=== PATIENT | male | born 1990 | race African-American/Black ===

== ENCOUNTER 2019-08-29 00:42 | Emergency (ER) | payer OTHER ==
[~2019-08-29] VITALS: Ht 177.8 cm; Wt 95.3 kg
[2019-08-29 01:20] VITALS: BP 117/81
[2019-08-29 01:33] LABS: Basophils # (auto) 0 uL; Basophils % (auto) 0.5 % (0.0-2.0); Eosinophils # (auto) 0.1 uL; Eosinophils % (auto) 1.2 % (0.0-7.0); Hematocrit 50.9 % (41.0-53.0); Hemoglobin 17.1 g/dL (13.5-17.5); Lymphocytes # (auto) 1.9 uL; Lymphocytes % (auto) 21.2 % (10.0-50.0); Mean Corpuscular Hgb Conc. 33.7 g/dL (32.0-36.0); Mean Corpuscular Volume 89.1 fL (80.0-100.0); Monocytes # (auto) 0.5 uL; Monocytes % (auto) 5.3 % (0.0-12.0); Neutrophils # (auto) 6.5 uL; Neutrophils % (auto) 71.8 % (37.0-80.0); Nucleated Red Blood Cells % 0.1 %; Platelet Count (auto) 292 10^3/uL (140-450); Red Blood Cells 5.71 10^6/uL (4.5-5.90); White Blood Cell 9.1 10^3/uL (4.4-10.8)
[2019-08-29 02:37] LABS: Potassium 4.2 mmol/L (3.5-5.1)
[2019-08-29 02:40] LABS: BUN/Creatinine Ratio 8.8; Calcium 8.7 mg/dL (8.5-10.1)
== END 2019-08-29 04:22 | disposition home or self-care (01) ==
LOC: ER 00:44
DX: K59.00 Constipation, unspecified (principal); E86.0 Dehydration
CPT/HCPCS: 36415; 74176; 80048; 82150; 83690; 85025